=== PATIENT | male | born 1975 | race Caucasian/White ===

== ENCOUNTER → 2016-09-27 | Emergency (ER) | payer BC ==
[~2016-09-27] MED LIST: ACETAMINOPHEN 325 MG TABLET (FP) ONE; ACETAMINOPHEN 500 MG TABLET (FP) PO ONE
[2016-09-27 15:08] VITALS: BMI 29.8
--- NOTE | 2016-09-27 15:36 | PDOC ---
History of Present Illness - General History Source: Patient, Old Records Exam Limitations: No Limitations <DionBeena - Last Filed: 09/27/16 15:37> - General History Source: Patient Exam Limitations: No Limitations - History of Present Illness Initial Comments: 09/27/16 15:46 The patient is a 41-year-old male, accompanied by his fiance, with no past medical history who presents to the emergency department for further evaluation of a near syncopal episode at approximately 14:15 this afternoon. No LOC. Patient states that he was driving with his son, when he suddenly felt a a stomach flip, "described as a drop in a roller coaster ride" followed by lightheadedness and nausea. Patient states that this has happened in the past but this presentation is worse. He also to picking up a smokeing habit, this year, since his trip to [place]. Now, over the past 3 days, he admits that 1 pack only lasts him 1 day. 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 No fever, chills, generalized weakness, abdominal pain, nausea, vomiting, diarrhea, ear pain, rhinorrhea, cough, shortness of breath, dysuria. Allergies: No Known Drug Allergies Past Surgical History: None reported Social History: Started smoking cigarettes this year. Over the last 3 days, he has smoked 1 pack per day. No EtOH and recreational drug use. Primary Care Physician: Dr. Shannon Harvey <Lorena Rosas - Last Filed: 09/27/16 16:06> - General Chief Complaint: Lightheaded Stated Complaint: LIGHTHEADED Time Seen by Provider: 09/27/16 15:23 Past History - Psycho/Social/Smoking Cessation Hx Anxiety: No Suicidal Ideation: No Smoking History: Current every day smoker Have you smoked in the past 12 months: Yes Number of Cigarettes Smoked Daily: 20 Information on smoking cessation initiated: No Hx Alcohol Use: No Drug/Substance Use Hx: No Substance Use Type: None <Beena Ashley - Last Filed: 09/27/16 15:37> <Lorena Rosas - Last Filed: 05/06/17 16:06> - Past Medical History Allergies/Adverse Reactions: Allergies Allergy/AdvReac Type Severity Reaction Status Date / Time No Known Allergies Allergy Verified 09/27/16 15:08 Home Medications: Ambulatory Orders NK [No Known Home Medication] 09/27/16 Review of Systems - Review of Systems Able to Perform ROS?: Yes Comments:: 09/27/16 15:46 CONSTITUTIONAL: Absent: fever, chills, diaphoresis, generalized weakness, malaise, loss of appetite HEENT: Absent: rhinorrhea, nasal congestion, throat pain, throat swelling, difficulty swallowing, mouth swelling, ear pain, eye pain, visual Changes CARDIOVASCULAR: Present: Near syncope. Lightheadedness. Absent: chest pain, palpitations, irregular heart rate, peripheral edema RESPIRATORY: Absent: cough, shortness of breath, dyspnea with exertion, orthopnea, wheezing, stridor, hemoptysis GASTROINTESTINAL: Present: Nausea. Absent: abdominal pain, abdominal distension , vomiting, diarrhea, constipation, melena, hematochezia GENITOURINARY: Absent: dysuria, frequency, urgency, hesitancy, hematuria, flank pain, genital pain MUSCULOSKELETAL: Absent: myalgia, arthralgia, joint swelling SKIN: Absent: rash, itching, pallor HEMATOLOGIC/IMMUNOLOGIC: Absent: easy bleeding, easy bruising, lymphadenopathy, frequent infections ENDOCRINE:Absent: unexplained weight gain, unexplained weight loss, heat intolerance, cold intolerance NEUROLOGIC: Absent: headache, focal weakness or paresthesias, dizziness, unsteady gait, seizure, mental status changes, bladder or bowel incontinence PSYCHIATRIC: Absent: anxiety, depression, suicidal or homicidal ideation, hallucinations <Lorena Rosas - Last Filed: 09/27/16 16:06> *Physical Exam - Vital Signs Last Vital Signs Temp Pulse Resp BP Pulse Ox 98.4 F 86 18 142/89 100 09/27/16 15:02 09/27/16 15:02 09/27/16 15:02 09/27/16 15:02 09/27/16 15:02 <Beena Ashley - Last Filed: 09/27/16 15:37> - Vital Signs Last Vital Signs Temp Pulse Resp BP Pulse Ox 98.4 F 86 18 142/89 100 09/27/16 15:02 09/27/16 15:02 09/27/16 15:02 09/27/16 15:02 09/27/16 15:02 - Physical Exam Comments: 09/27/16 15:47 GENERAL: Well developed, well nourished. Awake and alert. No acute distress. HEENT: Normocephalic, atraumatic. PERRLA, EOMI. No conjunctival pallor. Sclera are non-icteric. Moist mucous membranes. Oropharynx is clear. NECK: Supple. Full ROM. No JVD. CARDIOVASCULAR: Regular rate and rhythm. No murmurs, rubs, or gallops. PULMONARY: No evidence of respiratory distress. Lungs clear to auscultation bilaterally. No wheezing, rales or rhonchi. ABDOMINAL: Soft. Non-tender. Non-distended. No rebound or guarding. No organomegaly. Normoactive bowel sounds. MUSCULOSKELETAL: Normal range of motion at all joints. No bony deformities or tenderness. No CVA tenderness. EXTREMITIES: No cyanosis. No clubbing. No edema. No calf tenderness. SKIN: Warm and dry. Normal capillary refill. No rashes. No jaundice. NEUROLOGICAL: Alert, awake, appropriate. Cranial nerves 2-12 intact. Normal speech. PSYCHIATRIC: Cooperative. Good eye contact. Appropriate mood and affect. <Lorena Rosas - Last Filed: 09/27/16 16:06> Heart Score/ECG Review #1 09/27/16 15:47 Reviewed and interpreted by Dr. Beena Ashley IMPRESSION: Normal sinus rhythm with a ventricular rate of 87 bpm. Normal axis. Normal intervals. Meets LVH bi-voltage criteria. <Lorena Rosas - Last Filed: 09/27/16 16:06> ED Treatment Course - LABORATORY CBC & Chemistry Diagram: 09/27/16 15:45 09/27/16 15:45 <Lorena Rosas - Last Filed: 09/27/16 16:06> Medical Decision Making - Medical Decision Making 09/27/16 15:37 41-year-old male with no significant past medical history presents to the emergency department with lightheadedness and dizziness that occurred approximately 2 PM. The patient has been smoking one pack per day for the past 3 days. Differential diagnosis includes but is not limited to: ACS, anemia, dehydration, infection, toxic/metabolic derangement, anxiety. Plan: 1. EKG 2. Chest x-ray 3. Labs 4. Urine 5. Observe and reevaluate <Beena Ashley - Last Filed: 09/27/16 15:37> *DC/Admit/Observation/Transfer - Attestations Physician Attestion: 09/27/16 15:40 I, Dr. Beena Ashley, attest that the scribes documentation that appears above has been prepared under my direction and personally reviewed by me in its entirety. I confirmed that the note above accurately reflects all work, treatment, procedures, and medical decision-making performed by me. <Beena Ashley - Last Filed: 09/27/16 15:37> - Attestations Scribe Attestion: 09/27/16 15:48 Documentation prepared by Lorena Rosas, acting as clinical specialist medical device for Beena Aslhey MD. <Lorena Rosas - Last Filed: 09/27/16 16:06> Diagnosis at time of Disposition: Light headedness - Referrals Referrals: Shannon Harvey [Primary Care Provider] -
[2016-09-27 15:55] LABS: BASOPHIL 0.5 % (0-2.0); EOSINOPHIL 1.9 % (0-4.5); MCH 28.3 pg (25.7-33.7); MCHC 33.3 g/dl (32.0-35.9); MEAN CELL VOLUME 84.9 fl (80-96); MEAN PLT VOLUME 6.8 fl (7.5-11.1); PLATELET COUNT 300 K/MM3 (134-434); RDW 13.7 % (11.9-15.9); WHITE BLOOD COUNT 6.6 K/mm3 (4.0-10.0)
[2016-09-27 16:03] LABS: URINE APPEARANCE CLEAR; URINE BILIRUBIN NEGATIVE (NEGATIVE); URINE BLOOD NEGATIVE (NEGATIVE); URINE COLOR STRAW; URINE GLUCOSE (UA) NEGATIVE (NEGATIVE); URINE KETONE NEGATIVE (NEGATIVE); URINE LEUK ESTERASE NEGATIVE (NEGATIVE); URINE NITRITE NEGATIVE (NEGATIVE); URINE PROTEIN NEGATIVE (NEGATIVE); URINE UROBILINOGEN NEGATIVE E.U./dl (0.2-1.0)
[2016-09-27 16:25] LABS: ALBUMIN 3.9 g/dl (3.4-5.0); ANION GAP 10 (8-16); BILIRUBIN,TOTAL 0.5 mg/dL (0.2-1.0); CALCIUM 8.8 mg/dL (8.5-10.1); CO2 25 mmol/L (21-32); COCKROFT - GAULT 122.2; CREATININE 1.1 mg/dL (0.7-1.3); GLUCOSE,RANDOM 91 mg/dL (74-106); SGOT/AST 15 U/L (15-37); SGPT/ALT 29 U/L (12-78); TOT PROT 7.4 g/dl (6.4-8.2)
[2016-09-27 16:27] LABS: ALK PHOS 69 U/L (45-117); TROPONIN I < 0.02 ng/ml (0.00-0.05)
--- NOTE | 2016-09-27 18:56 | PDOC ---
*Physical Exam - Vital Signs Last Vital Signs Temp Pulse Resp BP Pulse Ox 98.4 F 83 17 139/79 98 09/27/16 15:02 09/27/16 17:35 09/27/16 17:35 09/27/16 17:35 09/27/16 17:35 ED Treatment Course - LABORATORY CBC & Chemistry Diagram: 09/27/16 15:45 09/27/16 15:45 - ADDITIONAL ORDERS Additional order review: Laboratory Results 09/27/16 09/27/16 15:45 15:45 Sodium 141 Potassium 4.4 Chloride 106 Carbon Dioxide 25 Anion Gap 10 BUN 17 Creatinine 1.1 Creat Clearance w eGFR > 60 Random Glucose 91 Calcium 8.8 Total Bilirubin 0.5 AST 15 ALT 29 Alkaline Phosphatase 69 Creatine Kinase 117 Troponin I < 0.02 Total Protein 7.4 Albumin 3.9 Urine Color Straw Urine Appearance Clear Urine pH 5.0 Ur Specific [place] Urine Protein Negative Urine Glucose (UA) Negative Urine Ketones Negative Urine Blood Negative Urine Nitrite Negative Urine Bilirubin Negative Urine Urobilinogen Negative Ur Leukocyte Esterase Negative 09/27/16 15:45 RBC 4.88 MCV 84.9 MCHC 33.3 RDW 13.7 MPV 6.8 L Neutrophils % 71.0 Lymphocytes % 21.2 Monocytes % 5.4 Eosinophils % 1.9 Basophils % 0.5 - Medications Given in the ED: ED Medications Discontinued Medications Generic Name Dose Route Start Last Admin Trade Name Miahq PRN Reason Stop Dose Admin Acetaminophen 1,000 mg 09/27/16 16:59 09/27/16 17:35 Tylenol - PO 09/27/16 17:00 1,000 mg ONCE ONE Administration Medical Decision Making - Medical Decision Making 09/27/16 18:44 this is a 41 yo M with no significant past medical history who presents to the ER with a complaint of a near syncopal episode at approximately 14:15 He likened it to being on a roller coaster (+) lightheadedness and nausea. He denies other symptoms Initial labs normal 09/27/16 22:29 Plan was for repeat troponin in 6 hours Laboratory Tests 09/27/16 21:41 Creatine Kinase 99 Troponin I < 0.02 Will discharge to home Will ask pt to follow up with PMD Return to the Er for any other concerns or complaints *DC/Admit/Observation/Transfer Diagnosis at time of Disposition: Light headedness - Discharge Dispostion Disposition: HOME Condition at time of disposition: Stable Admit: No - Referrals Referrals: Shannon Harvey [Primary Care Provider] - - Patient Instructions Printed Discharge Instructions: DI for Dizziness-Nonvertigo Additional Instructions: Mr Smith Thank you for coming in to the ER today Please cut back on your use of cigarettes Please review your labs You should follow up with your primary care physician within 1 week Return to the ER if your symptoms persist or worsen OR you develop new symptoms not addressed today - Post Discharge Activity Work/School Note: Back to Work
[2016-09-27 22:20] LABS: TROPONIN I < 0.02 ng/ml (0.00-0.05)
[2016-09-27 22:44] VITALS: BP 121/66; PULSE 86; TEMP 98.2
--- NOTE | 2016-09-29 13:39 | EKG ---
Test Reason : Blood Pressure : / mmHG Vent. Rate : 087 BPM Atrial Rate : 087 BPM P-R Int : 166 ms QRS Dur : 092 ms QT Int : 348 ms P-R-T Axes : 045 001 011 degrees QTc Int : 418 ms NORMAL SINUS RHYTHM MINIMAL VOLTAGE CRITERIA FOR LVH, MAY BE NORMAL VARIANT BORDERLINE ECG NO PREVIOUS ECGS AVAILABLE Confirmed by SHEILA RAMEY MD ([id number]) on 09/29/2016 1:39:06 PM Referred By: Confirmed By:SHEILA RAMEY MD
== END | disposition home or self-care (01) ==
LOC: JER 14:55
DX: R42 Dizziness and giddiness (principal); F17.210 Nicotine dependence, cigarettes, uncomplicated
CPT/HCPCS: 36415; 71010-TC; 80053; 81003; 82550; 84484; 85025; 93005; 93010; 99284-25